=== PATIENT | female | born 2000 ===

== ENCOUNTER 2022-08-21 10:59 | Outpatient (CLI) | payer OTHER | END 2022-08-21 12:45 | disposition home or self-care (01) | LOC: PRENATAL 10:59 | PROVIDERS: ATTEND Obstetrics & Gynecology Maternal & Fetal Medicine | DX: O36.80X0 Pregnancy with inconclusive fetal viability, not applicable or unspecified (principal); Z14.8 Genetic carrier of other disease; Z3A.14 14 weeks gestation of pregnancy ==

== ENCOUNTER 2022-10-02 10:56 | Outpatient (CLI) | payer OTHER | END 2022-10-02 12:08 | disposition home or self-care (01) | LOC: PRENATAL 10:56 | PROVIDERS: ATTEND Obstetrics & Gynecology Maternal & Fetal Medicine | DX: O35.9XX0 Maternal care for (suspected) fetal abnormality and damage, unspecified, not applicable or unspecified (principal); O35.3XX0 Maternal care for (suspected) damage to fetus from viral disease in mother, not applicable or unspecified; Z3A.20 20 weeks gestation of pregnancy ==

== ENCOUNTER 2022-12-26 10:21 | Outpatient (CLI) | payer OTHER | END 2022-12-26 10:59 | disposition home or self-care (01) | LOC: PRENATAL 10:21 | PROVIDERS: ATTEND Obstetrics & Gynecology Maternal & Fetal Medicine | DX: O26.849 Uterine size-date discrepancy, unspecified trimester (principal); O36.8199 Decreased fetal movements, unspecified trimester, other fetus; Z3A.32 32 weeks gestation of pregnancy ==

== ENCOUNTER 2023-02-07 13:00 | Inpatient (IN) | payer OTHER ==
[~2023-02-07] VITALS: Ht 160 cm; Wt 3.2 kg
[2023-02-13 08:19] LABS: HEMATOCRIT 37.8 % (36.0-45.00); HEMOGLOBIN 13.1 g/dL (12.0-15.00); MEAN CELL VOLUME 87.6 fL (80.00-100.00); MEAN CORPUSCULAR HEMOGLOBIN 30.3 pg (27.00-32.0); MEAN CORPUSCULAR HGB CONC 34.6 g/dl (32.0-36.0); PLATELET COUNT 224 K/uL (150-450); RED BLOOD COUNT 4.32 M/uL (4.00-6.00); RED CELL DISTRIBUTION WIDTH 13.9 % (11.5-14.5)
[2023-02-13 08:28] LABS: URINE APPEARANCE Turbid; URINE BILIRRUBIN Negative (NEGATIVE); URINE BLOOD Negative; URINE COLOR Dark Yellow; URINE GLUCOSE Negative (NEGATIVE); URINE LEUKOCYTE Moderate; URINE NITRATE Negative; URINE PROTEIN Trace (NEGATIVE)
[2023-02-13 08:29] LABS: URINE EPITHELIAL CELLS 65.2 uL (0.0-38.8); URINE RBC 11.7 uL (0.0-20.8); URINE WBC 587.5 uL (0.0-23.2)
[2023-02-13 08:41] LABS: URINE BACTERIA > 9821.5 uL (0.0-1933)
[2023-02-13] MEDS ORDERED: PRENATAL TABLE1 EAC1 PO (09:03)
[2023-02-13 09:13] LABS: INR 0.95; PARTIAL THROMBOPLASTIN TIME 27.1 SECONDS (22.0-34.0)
[2023-02-13 19:04] LABS: ABG pCO2 52.5 mmHg (35-45); BASE EXCESS -2.7 mmol/l; BICARBONATE 24.7 mmol/l (23-25); Tco2 26.3 mmol/l
[2023-02-13 19:07] LABS: o2 21 %
[2023-02-14 07:17] LABS: HEMATOCRIT 42.5 % (36.0-45.00); HEMOGLOBIN 14.1 g/dL (12.0-15.00); MEAN CELL VOLUME 88.6 fL (80.00-100.00); MEAN CORPUSCULAR HEMOGLOBIN 29.4 pg (27.00-32.0); MEAN CORPUSCULAR HGB CONC 33.2 g/dl (32.0-36.0); PLATELET COUNT 213 K/uL (150-450); RED CELL DISTRIBUTION WIDTH 13.2 % (11.5-14.5)
== END 2023-02-15 14:32 | disposition home or self-care (01) | DRG 788 ==
LOC: LDR 02-13 06:31 → O/R 02-13 17:33 → OB/GYN 02-13 19:54 → SURG 02-17 13:00
PROVIDERS: ADMIT Obstetrics & Gynecology; ATTEND Obstetrics & Gynecology
PROC: 4A1HXCZ Monitoring of Products of Conception, Cardiac Rate, External Approach (ICD-10-PCS; 2023-02-13)
PROC: 10D00Z1 Extraction of Products of Conception, Low, Open Approach (ICD-10-PCS; principal; 2023-02-13 18:30)
DX: O34.211 Maternal care for low transverse scar from previous cesarean delivery (principal); Z3A.39 39 weeks gestation of pregnancy; Z37.0 Single live birth; Z20.822 Contact with and (suspected) exposure to COVID-19